=== PATIENT | male | born 1995 | race Caucasian/White ===

== ENCOUNTER 2023-08-07 20:48 | Emergency (ER) | payer OTHER ==
[~2023-08-07] VITALS: Ht 185.4 cm; Wt 99.8 kg
[2023-08-07 20:59] VITALS: BP_SYST 112; PULSE 82; RESP 18; TEMP 98; O2SAT 97
[2023-08-07 22:36] LABS: BASOPHILS # (AUTO) 0.1 K/uL (0.0-0.2); LYMPHOCYTES # (AUTO) 2.9 K/uL (1.0-5.5)
[2023-08-07 22:55] LABS: CALCIUM 8.2 mg/dL (8.4-11.0); CREATININE 0.68 mg/dL (0.55-1.30); POTASSIUM 3.8 mmol/L (3.5-5.1)
[2023-08-07] MEDS: NACL 0.9% 1,000 ML IV ONE (22:55)
[2023-08-07 23:11] LABS: BASOPHILS % (AUTO) 0.6 % (0.0-2.0); EOSINOPHILS # (AUTO) 0.4 K/uL (0.0-0.4); EOSINOPHILS % (AUTO) 3.5 % (0.0-4.0); HEMATOCRIT 41.2 % (36-54); HEMOGLOBIN 14.3 g/dL (14.0-18.0); MEAN CORPUSCULAR HEMOGLOBIN 31 pg (27-31); MEAN CORPUSCULAR HGB CONC 35 % (32-36); MEAN CORPUSCULAR VOLUME 88 fL (79.0-98.0); NEUTROPHILS # (AUTO) 8.1 K/uL (1.8-7.7); NEUTROPHILS % (AUTO) 64.9 % (40.0-70.0); PLATELET COUNT (AUTO) 324 K/uL (130-430); RED BLOOD CELL COUNT(AUTO) 4.68 MIL/uL (4.2-6.2); RED CELL DISTRIBUTION WIDTH 13.7 % (9.0-15.0); WHITE BLOOD COUNT (AUTO) 12.5 K/uL (4.8-10.8)
[2023-08-08 00:15] VITALS: BP_SYST 140; PULSE 86; RESP 19; O2SAT 97
== END 2023-08-08 00:15 | disposition home or self-care (01) ==
LOC: SED 20:48
DX: R56.9 Unspecified convulsions (principal)
CPT/HCPCS: 99283; 96360; 80048; 85025; 36415; J7030